=== PATIENT | female | born 2000 | race Caucasian/White ===

== ENCOUNTER 2021-02-26 21:08 | Emergency (ER) | payer SELFPAY ==
[~2021-02-26] VITALS: Ht 167.6 cm; Wt 95.7 kg
[~2021-02-26 21:08] MED LIST: PERM5TC TOP
[2021-02-26] MEDS ORDERED: AMOCLA875 PO (22:45)
== END 2021-02-26 22:57 | disposition home or self-care (01) ==
LOC: ER 21:08
DX: S61.432A Puncture wound without foreign body of left hand, initial encounter (principal); Z23 Encounter for immunization; W54.0XXA Bitten by dog, initial encounter; Y93.89 Activity, other specified
CPT/HCPCS: 29125; 73130; 90471; 90714; 99283-25; A9270; L3917

== ENCOUNTER → 2023-01-09 | Outpatient (CLI) | payer OTHER ==
[~2023-01-09] MED LIST changes: +AMOCLA875 PO
== END ==
LOC: LAB SHORT 10:10 → LAB 10:10
DX: E28.2 Polycystic ovarian syndrome (principal)
CPT/HCPCS: 83525